=== PATIENT | female | born 1980 | race Caucasian/White ===

== ENCOUNTER 2025-04-02 12:42 | Emergency (ER) | payer MEDICAID ==
[~2025-04-02] VITALS: Ht 167.6 cm; Wt 61.0 kg
[2025-04-02 12:44] VITALS: TEMP 37; O2SAT 100
[2025-04-02 14:14] VITALS: TEMP 98.6
[2025-04-02] MEDS: KETOROLAC 30MG/ML VIAL IM ONE (14:14)
[2025-04-02] MEDS: ACETAMINOPHEN 325MG TABLET PO ONE (14:14)
[2025-04-02 14:44] LABS: BASOPHILS % 1.2 % (0.0-2.0); HEMATOCRIT. 36.1 % (36.0-48.0); HEMOGLOBIN. 12.2 g/dL (12.0-16.0); LYMPHOCYTES % 20.6 % (20.0-50.0); MEAN CORPUSCULAR HEMOGLOBIN 31.5 pg (28.0-32.0); MEAN CORPUSCULAR HGB CONC 33.9 g/dL (31.0-37.0); MEAN PLATELET VOLUME 6.9 fl (7.4-10.4); MONOCYTES % 7.7 % (2.0-8.0); NEUTROPHILS % 68.5 % (40.0-76.0); PLATELET 436 x1000/uL (130-400); RED BLOOD CELL COUNT 3.88 mill/uL (4.2-5.4); RED CELL DISTRIBUTION WIDTH 13.6 % (11.6-14.6); WHITE BLOOD COUNT 10.6 x1000/uL (4.5-11.0)
[2025-04-02 14:53] LABS: CARBON DIOXIDE 28 mEq/L (21-32); CHLORIDE 110 mEq/L (98-107); POTASSIUM 4.7 mEq/L (3.5-5.1); SODIUM 143 mEq/L (136-145)
[2025-04-02 14:54] LABS: CALCIUM 9.1 mg/dL (8.7-10.4)
[2025-04-02 14:55] LABS: PROTHROMBIN TIME 10.3 sec (9.6-11.0)
[2025-04-02 14:58] LABS: CREATININE 0.7 mg/dL (0.6-1.0)
[2025-04-02 14:59] LABS: GLUCOSE 86 mg/dL (70-105); TROPONIN I HIGH SENSITIVITY 4 ng/L (3.0-34); UREA NITROGEN BLOOD 12 mg/dL (9-23)
[2025-04-02 15:00] LABS: ALANINE AMINOTRANSFERASE 15 IU/L (10-49); ALBUMIN 4.5 g/dL (3.2-4.8); ASPARTATE AMINOTRANSFERASE 27 IU/L (<34)
[2025-04-02 15:01] LABS: BILIRUBIN DIRECT 0.2 mg/dL (<=3.0); BILIRUBIN TOTAL 0.6 mg/dL (0.1-1.0); PROTEIN TOTAL 6.6 g/dL (6.0-8.3)
[2025-04-02] MEDS: CYCLOBENZAPRINE 10MG TABLET PO ONE (15:22)
[2025-04-02] MEDS ORDERED: LIDO-53 TP (15:22)
[2025-04-02] MEDS: ONDANSETRON 4MG ODT PO ONE (15:22)
[2025-04-02] MEDS ORDERED: ACET-2708 MT (15:22)
[2025-04-02 15:29] VITALS: BP 106/66; PULSE 80; RESP 16; O2SAT 99
[2025-04-02] MEDS ORDERED: CYCL10TA21 MT (15:48)
== END 2025-04-02 15:31 | disposition home or self-care (01) ==
LOC: ER 12:42
DX: R07.89 Other chest pain (principal); J45.909 Unspecified asthma, uncomplicated; Z88.0 Allergy status to penicillin
CPT/HCPCS: 80076; 80048; 85025; 85610; 84484; 36415; 71111; 93005; 96372; 99285; Q0162; J1885; Z7610